=== PATIENT | female | born 1985 | race Caucasian/White ===

== ENCOUNTER → 2021-03-08 | Outpatient (CLI) | payer BC ==
[~2021-03-08] MED LIST: BRINTELLIX5 MG PO; FLAGYL500 MG PO; LEVAQUIN500 MG PO
== END ==
LOC: HEART 5 14:20
DX: R00.2 Palpitations (principal)

== ENCOUNTER → 2021-03-09 | Outpatient (CLI) | payer BC | LOC: KOH-I 10:19 | DX: R10.9 Unspecified abdominal pain (principal); R93.5 Abnormal findings on diagnostic imaging of other abdominal regions, including retroperitoneum; R11.0 Nausea; K59.00 Constipation, unspecified | CPT/HCPCS: 74150 ==

== ENCOUNTER → 2021-04-12 | Outpatient (CLI) | payer BC | LOC: EMI 15:10 | DX: G43.909 Migraine, unspecified, not intractable, without status migrainosus (principal) | CPT/HCPCS: 70551 ==